=== PATIENT | male | born 1990 | race Caucasian/White ===

== ENCOUNTER → 2024-05-31 | Outpatient (CLI) | payer MEDICARE, MEDICAID, SELFPAY ==
--- NOTE | 2024-05-31 09:30 | XR_ITS ---
Examination: MRI brain with intravenous contrast TECHNIQUE: Multiple axial sagittal coronal brain MRI images post intravenous ministration 16 cc gadolinium INDICATIONS: Diagnosis tuberous sclerosis history encephalitis, intermittent headaches 3 years Exam date and time: May 23, 2024 0940 hours FINDINGS: Ventricles are not enlarged No mass effect upon the ventricular system No effacement cortical sulcal markings No abnormal enhancing cerebellar or cerebral lesions IMPRESSION: Negative for acute hemorrhage mass effect or midline shift No abnormal enhancing cerebellar or cerebral lesions
== END | disposition home or self-care (01) ==
PROVIDERS: Referring Provider Specialist; Visit Provider Specialist
DX: Q85.1 Tuberous sclerosis (principal)
CPT/HCPCS: 70552; A9579

== ENCOUNTER 2024-07-24 07:10 | Day surgery (SDC) | payer MEDICARE, MEDICAID, SELFPAY ==
[2024-07-23 14:40] VITALS: BMI 29.0
[2024-07-24] VITALS (9 sets, daily range): BP systolic 105–138; BP diastolic 58–87; PULSE 78–91; RESP 15–26; TEMP 36.7–37.2; O2SAT 95–99; BMI 28.7
[2024-07-24] MEDS: SODIUM CHLORIDE 0.9% 500 ML 500 ML 20 ML IV (09:25)
[2024-07-24] MEDS: DiphenhydrAMINE INJ 50 MG/ML VIAL 25 MG IV (09:25)
[2024-07-24] MEDS: BENZOCAINE 20% (Hurricaine) SPRAY 1 DOSE TOP (09:25)
[2024-07-24] MEDS: MIDAZOLAM INJ 1 MG/ML VIAL 2 ML (ASD USE ONLY) 2 MG IV (09:29)
[2024-07-24] MEDS: fentaNYL CIT INJ 50 mCg/ML AMP 2ML (ASD USE ONLY) IV (09:29)
== END 2024-07-24 10:15 ==
PROVIDERS: Referring Provider Specialist; Visit Provider Specialist
PROC: (CPT 43239; principal; 2024-07-24 08:30)
DX: K20.90 Esophagitis, unspecified without bleeding (principal); K22.10 Ulcer of esophagus without bleeding; K29.70 Gastritis, unspecified, without bleeding; K29.50 Unspecified chronic gastritis without bleeding; K31.89 Other diseases of stomach and duodenum
CPT/HCPCS: 43239; J1200; J2250; J3010; J7040; A9270